=== PATIENT | female | born 1950 | race Caucasian/White ===

== ENCOUNTER → 2020-06-26 | Outpatient (CLI) | payer OTHER | LOC: DX 13:27 | PROVIDERS: ATTEND Internal Medicine Rheumatology | DX: M81.0 Age-related osteoporosis without current pathological fracture (principal) | CPT/HCPCS: 77080 ==

== ENCOUNTER 2022-01-25 10:07 | Emergency (ER) | payer MEDICARE, OTHER ==
[~2022-01-25] VITALS: Ht 160 cm; Wt 63.5 kg
[2022-01-25] MEDS ORDERED: IBUPROFEN 600 MG TAB ONE (11:32)
[2022-01-25] MEDS ORDERED: LEVOFLOXACIN250 MG PO (12:36)
[2022-01-25] MEDS ORDERED: BROMPHENIR-PSE118 ML PO (12:36)
[2022-01-25] MEDS ORDERED: CEFTRIAXONE 1 GM VIAL IM ONE (12:45)
== END 2022-01-25 12:43 | disposition home or self-care (01) ==
LOC: FSED 10:16
DX: R50.9 Fever, unspecified (principal); J18.9 Pneumonia, unspecified organism; J02.0 Streptococcal pharyngitis; I10 Essential (primary) hypertension; I50.9 Heart failure, unspecified; J84.10 Pulmonary fibrosis, unspecified; M06.9 Rheumatoid arthritis, unspecified
CPT/HCPCS: 71045; 80053; 81003; 83518; 85025; 87400; 99283